=== PATIENT | female | born 1980 | race Caucasian/White ===

== ENCOUNTER 2017-08-26 08:13 | Day surgery (SDC) | payer OTHER ==
[~2017-08-26 08:13] MED LIST: RINGER'S SOLUTION,LACTATED 1,000 ML IV PRN
[2017-08-26 08:37] VITALS: BP 145/69
[2017-08-26 08:40] LABS: Hematocrit 35.9 % (37.0-47.0); Hemoglobin 12.3 gm/dL (12.5-16.0); Mean Cell Volume 88.6 fl (78-100); Mean Corpuscular Hemoglobin 30.4 pg (27-31); Mean Corpuscular Hgb Conc 34.3 g/dl (32-36); Mean Platelet Volume 10.9 fl (6.0-9.5); Neutrophil # 3.5 K/mm3 (1.3-6.0); Platelet Count 131 K/mm3 (150-450); Red Blood Count 4.05 M/mm3 (4.2-5.4); White Blood Count 6.1 K/mm3 (4.0-10.5)
[2017-08-26] MEDS ORDERED: RINGER'S SOLUTION,LACTATED 1,000 ML IV ONE (08:55)
== END 2017-08-26 08:14 | disposition home or self-care (01) ==
LOC: AMB 08:13
PROVIDERS: ATTEND Obstetrics & Gynecology
DX: N92.1 Excessive and frequent menstruation with irregular cycle (principal)

== ENCOUNTER 2017-09-02 07:51 | Day surgery (SDC) | payer OTHER ==
[2017-09-02] MEDS ORDERED: Silver Nitrate Applicator 10 EACH PACKET TP ONE (09:41)
[2017-09-02] MEDS ORDERED: FERRIC SUBSULFATE 8 ML VIAL TP ONE (09:43)
[2017-09-02] MEDS ORDERED: IBUPROFEN 600 MG TABLET PO PRN (09:47)
--- NOTE | 2017-09-02 10:34 | OR ---
Operative Report - Dictated Report Narrative: Operative Report 09/02/2017 Hysteroscopy Dilatation and Curettage Preoperative Diagnosis: Menometrorrhagia Postoperative Diagnosis: Menometrorrhagia Procedure: Hysteroscopy Dilatation and Curettage Surgeon: Marichuy Titus M.D. Anesthesia: Anthony Leon CRNA, IV sedation Findings: Uterine sound 11 cm. Copious amount of endometrial curettings. Fluids: 200 ml EBL: Minimal Drains: None Complications: None Condition: Stable Pathology: Endometrial curettings Procedure: The patient was taken to the operating room with IV fluids running. She was placed in the dorsal lithotomy position after anesthesia was induced. A bivalve speculum was placed in the vagina. The anterior lip of the cervix was grasped with a single-tooth tenaculum. Uterine sound was passed into the endometrial cavity with ease. Uterine sound was 11 cm. The cervix was dilated with Dain dilators. The hysteroscope was introduced into the endometrial cavity. The cavity was distended with normal saline. [place] were visualized bilaterally. There was a copious amount of endometrial tissue. The hysteroscope was removed. The cavity was sharply curetted without difficulty. The hysteroscope was once again introduced into the cavity. The cavity was completely curetted. The hysteroscope was removed. The single-tooth tenaculum was removed. Silver nitrate and Monsel's solution were used for cauterization. Sites were hemostatic. The speculum was removed from the vagina. Sponge counts were correct 2. The patient tolerated the procedure well.
[2017-09-02 11:11] VITALS: BP 154/54
== END 2017-09-02 07:52 | disposition home or self-care (01) ==
LOC: AMB 07:51
PROVIDERS: ATTEND Obstetrics & Gynecology
PROC: 0UJD8ZZ Inspection of Uterus and Cervix, Via Natural or Artificial Opening Endoscopic (ICD-10-PCS; 2017-09-02)
PROC: 0UDB7ZX Extraction of Endometrium, Via Natural or Artificial Opening, Diagnostic (ICD-10-PCS; principal; 2017-09-02 09:00)
DX: N92.1 Excessive and frequent menstruation with irregular cycle (principal); E28.2 Polycystic ovarian syndrome; I10 Essential (primary) hypertension; E11.9 Type 2 diabetes mellitus without complications; E78.5 Hyperlipidemia, unspecified; E66.9 Obesity, unspecified; Z68.43 Body mass index [BMI] 50.0-59.9, adult; Z87.891 Personal history of nicotine dependence

== ENCOUNTER 2019-07-05 13:43 | Observation (INO) ==
--- NOTE | 2019-07-05 14:22 | ERNOTE ---
Dyspnea - Date Date of Service: 07/05/19 - General Presenting Symptoms: shortness of breath Time Seen by Provider: 07/05/19 14:11 Source: patient, RN notes reviewed, old records Exam Limitations: no limitations - Immun/Allergies/Home Medications Immunizations: IMMUNIZATION HX Immunizations Up to Date Yes History of Influenza Vaccine No Hx Pneumococcal Vaccination No Allergies/Adverse Reactions: Allergies iodine Allergy (Intermediate, Verified 07/05/19 13:58) red rash, swelling nickel Adverse Reaction (Mild, Verified 07/05/19 13:58) RASH Home Medications: HOME MEDICATIONS Cholecalciferol (Vitamin D3) [Vitamin D3] 2,000 unit PO DAILY 08/21/17 [Last Taken Unknown] buPROPion HCL [Wellbutrin XL] 150 mg PO DAILY 08/21/17 [Last Taken Unknown] lisinopril 10 mg tablet 10 mg PO HS #30 tab 02/02/19 [Last Taken Unknown] blood sugar diagnostic strips See Dose Instructions .ROUTE .MEDSUPPLY #100 ea 02/05/19 [Last Taken Unknown] blood-glucose meter kit See Dose Instructions .ROUTE .MEDSUPPLY #1 ea 02/05/19 [Last Taken Unknown] calcium citrate-ergocalciferol (vitamin D2) 1,500 mg-200 unit tablet 1 tab PO DAILY #90 tab 02/05/19 [Last Taken Unknown] lancets See Dose Instructions .ROUTE .MEDSUPPLY #100 ea 02/05/19 [Last Taken Unknown] metFORMIN HCL [Metformin HCl ER] 1 tab PO HS 07/05/19 [Last Taken Unknown] - History of Present Illness Narrative: Nataliia is a 38 year old female brought to the ED from her PCP's office for dyspnea. This has been going on for 2 weeks and getting progressively worse. She has also gained approximately 65 pounds in the past 5 months. She denies chest pain, but becomes short of breath with minimal exertion. She also reports edema in her legs and abdomen. Severity: moderate Treatment COMPANY SECRETARY: none Initiating event: Reports: unknown Frequency of episodes: Reports: no prior episodes Modifying Factors - (Improves): Reports: rest Modifying Factors (Worsens): Reports: activity Associated Symptoms-Dyspnea: Reports: ankle/leg swelling, anxiety. Denies: fever/chills, chest pain/discomfort, cough, leg/calf pain Prior Treatment: Denies: recently seen Review of Systems - Review of Systems Constitutional: Absent: recent illness, fever, chills EYE: Present: no symptoms reported ENT: Absent: nose congestion, sore throat Respiratory: Present: shortness of breath. Absent: cough, orthopnea Cardiology: Present: edema. Absent: chest pain, claudication Gastrointestinal/Abdominal: Absent: nausea, vomiting, abdominal pain Genitourinary: Present: decreased urinary output. Absent: dysuria Musculoskeletal: Absent: muscle pain, joint pain Skin: Absent: rash, lesions Neurological: Absent: headache, dizziness/light-headedness Endocrine: Present: no symptoms reported Hematologic/Lymphatic: Absent: easy bruising, easy bleeding Psych: Present: anxiety Medical History (Updated 02/05/19 @ 09:46 by Kanwal Dodson MD) PCOS (polycystic ovarian syndrome) (Chronic) Onset Date: Unknown high testosterone levels CECY (obstructive sleep apnea) (Chronic) Onset Date: Unknown Morbid obesity with BMI of 50.0-59.9, adult (Chronic) Onset Date: Unknown BMI 55.55 (2016) Hypertension (Chronic) Onset Date: ~2015 Hyperlipidemia (Chronic) Onset Date: Unknown Endometrial hyperplasia (Chronic) Onset Date: ~12/12/17 simple Diabetes 1.5, managed as type 2 (Chronic) Onset Date: ~12/2015 H/O gestational DM with last child in 2011 Surgical History: Surgical History (Updated 07/15/18 @ 14:12 by Terese Lema RN) History of tubal ligation (Resolved) Onset Date: ~05/04/12 History of ear surgery (Resolved) Onset Date: Unknown myringotomy tubes age 3 History of hysteroscopy (Resolved) Onset Date: ~09/02/17 04/23/18. Dr. Titus - menometrorrhagia. Dr. Aguirre with IUD placement H/O dilation and curettage (Resolved) Onset Date: ~09/02/17 Dr. Titus - menometrorrhagia Hx of cholecystectomy (Resolved) Onset Date: ~2006 H/O section (Resolved) Onset Date: ~2003 also 2007, 2011. distress at induction, rpt - c section, Rh negative given Rhogam Family History: Family History (Updated 07/15/18 @ 14:13 by Terese Lema RN) Father , 12/2016 Diabetes Mother , age 43 Crohns disease Social History: (Last Reviewed 07/05/19 @ 15:45 by Salome Davis NP) Social History: adopted: No lives independently: Yes household members: significant other Highest education level completed: high school graduate Service: No Tobacco: Smoking Status: Former smoker Alcohol: alcohol intake: never Substance Use: substance use type: does not use Dietary Habits: caffeine: No Physical Exam - Physical Exam General Appearance: Present: alert, mild distress, anxious, obese, crying Head Exam: Present: normal inspection Eye Exam: Normal inspection: bilateral Neck: Present: normal inspection, nontender, supple, full range of motion Respiratory: Present: chest nontender, lungs clear, respiratory distress - mild, accessory muscle use - mildly dyspneic at rest Cardiovascular/Chest: Present: normal peripheral pulses, tachycardia, systolic murmur Gastrointestinal/Abdominal: Present: nontender, distended - obese Extremity Exam: Present: non-tender, normal range of motion, extremity edema - bilateral feet/lower legs. Absent: calf tenderness Neurological Exam: Present: alert, oriented, normal mood/affect, no motor /sensory deficits Skin Exam: Present: normal color, warm/dry Progress - Results and Orders Patient's Lab Results:: I have reviewed the patient's lab results. - Vital Signs Patient's Vital Signs:: I have reviewed the patient's vital signs. Vital Signs: Vital Signs 07/05/19 13:45 07/05/19 14:06 Temperature 37.5 C Pulse Rate 105 H 104 H Respiratory Rate 18 Blood Pressure 169/85 H O2 Sat by Pulse Oximetry 98 - EKG EKG #1 EKG: NSR, nonspecific ST T wave changes EKG read: Reviewed by me - X-Ray X-Ray #1 X-Ray: chest Interpretation: Reviewed by me X-ray Comments: Chest PA Lateral * Hypoinflated lung volumes. Patient has bibasilar opacities with partial obscuration of the medial aspects of the hemidiaphragms. There is increased vascular markings and peripheral linear lung markings at the lung bases bilaterally. No definable pneumothorax. Lateral view demonstrates blunted appearance of the costophrenic angles at the posterior aspect suggestive of small bilateral pleural fluid. Mild enlargement of the cardiac silhouette noted. Mild tortuosity of the thoracic aorta noted, with overlying atherosclerotic vascular calcifications. Overall stable. Trachea is in normal position. Bones show degenerative changes of the spine. IMPRESSION: 1. Hypoventilatory changes, bibasilar opacities suggestive of atelectasis versus multifocal pneumonia. 2. Probably vascular congestion/interstitial edema suggested. Small bilateral pleural fluid noted. 3. Stable mild cardiomegaly. Electronically signed by Johnathan Sagastume M.D.. - Progress/Reassessment Chief Complaint: Dyspnea Progress:: Unchanged Plan - Plan Plan: The patient has an elevated Ddimer at 5.43. Given her dyspnea and tachycardia (100-110), this is highly suspicious for a PE. A CTA chest is not able to be done today. Dr. Dodson was contacted and recommends transfer. I contacted [facility] and the patient was accepted for transfer by Dr. Moore. This was discussed with the patient, she is agreeable to transfer but is extremely anxious and tearful. Ativan ordered. The patient will be transported by [facility] ambulance. Departure Clinical Impression: Elevated d-dimer Dyspnea Qualifiers: Dyspnea type: shortness of breath Qualified Code(s): R06.02 - Shortness of breath; R06.00 - Dyspnea, unspecified; R06.01 - Orthopnea - Departure Disposition: Short Term Hospital Inpatient Condition: Serious Referrals: Kanwal Dodson MD [Primary Care Provider] -
[2019-07-05 14:36] LABS: Hematocrit 38.9 % (37.0-47.0); Hemoglobin 13.3 gm/dL (12.5-16.0); Mean Cell Volume 96.5 fl (78-100); Mean Corpuscular Hgb Conc 34.2 g/dl (32-36); Mean Platelet Volume 12.4 fl (8-12.5); Neutrophil # 3.8 K/mm3 (1.3-6.0); Neutrophil % 59.2 % (42-75.0); Platelet Count 102 K/mm3 (150-450); Red Blood Count 4.03 M/mm3 (4.2-5.4); Red Cell Distribution Width 15.7 % (11.5-14.0); White Blood Count 6.5 K/mm3 (4.0-10.5)
[2019-07-05 14:52] LABS: Troponin I 0.025 ng/mL (0.00-0.10)
[2019-07-05 14:55] LABS: Albumin * 1.9 gm/dl (3.4-5.0); Anion Gap 10.8 mmol/L (6.8-13.8); BUN/Creatinine Ratio 7.7 (9.0-21.6); Bilirubin, Total 6.4 mg/dL (0.0-1.1); Ca. Corrected For Albumin 9.2 mg/dL (8.4-10.2); Calcium * 7.8 mg/dL (7.9-10.9); Carbon Dioxide 24.8 mmol/L (24-32.6); Potassium 3.6 mmol/L (3.4-4.6); TSH * 4.021 uIU/mL (0.358-3.74); Total Protein 5.4 gm/dL (6.2-8.2)
[2019-07-05] MEDS ORDERED: LORazepam 2 MG/ML DISP.SYRIN IV ONE (15:31)
[2019-07-05] MEDS ORDERED: ENOXAPARIN SODIUM SC SCH ×3 (17:30)
[2019-07-05] MEDS ORDERED: ENOXAPARIN SODIUM 60 MG/0.6 ML SYRG SC SCH (17:30)
[2019-07-05] MEDS ORDERED: ENOXAPARIN SODIUM 80 MG/0.8 ML DISP.SYRIN SC SCH (20:00)
[2019-07-05 20:05] LABS: Prothrombin Time (Patient) 18.7 Seconds (9.1-10.7)
[2019-07-05 20:06] LABS: INR 1.94 INR (0.92-1.08)
[2019-07-05] MEDS ORDERED: METOPROLOL TARTRATE 1 MG/ML AMPUL IV ONE (20:07)
--- NOTE | 2019-07-05 20:34 | HP ---
Chief Complaint - Chief Complaint Date of Service: 07/05/19 Time of Service: 20:10 Chief Complaint: I have been gaining weight and short of breath over the past 2 weeks History of Present Illness: 38-year-old interracial female with past medical history of type 2 diabetes, morbid obesity, hyperlipidemia, CECY, PCOS, was sent to the ER from my office early this afternoon when the patient showed up for his scheduled visit and was noted to be short of breath and in mild respiratory distress. Patient reports that over the past 2 weeks she has been gradually gaining weight and has been heavier in her feet which makes it difficult to ambulate without over exerting herself, she also reports worsening shortness of breath with mild exertion and difficulty breathing. She denies having these symptoms before and never been diagnosed with respiratory issues. Patient reports besides the mentioned symptoms she suspects that she has been running a low-grade fever and has had a mild nonproductive cough. She denies contact with sick persons or any changes in her medications. Patient does not have a cardiac or renal history that would explain her symptoms. Medical History (Updated 07/05/19 @ 15:51 by Salome Davis NP) PCOS (polycystic ovarian syndrome) (Chronic) Onset Date: Unknown high testosterone levels CECY (obstructive sleep apnea) (Chronic) Onset Date: Unknown Morbid obesity with BMI of 50.0-59.9, adult (Chronic) Onset Date: Unknown BMI 55.55 (2016) Hypertension (Chronic) Onset Date: ~2015 Hyperlipidemia (Chronic) Onset Date: Unknown Endometrial hyperplasia (Chronic) Onset Date: ~12/12/17 simple Diabetes 1.5, managed as type 2 (Chronic) Onset Date: ~12/2015 H/O gestational DM with last child in 2011 Surgical History: Surgical History (Updated 07/15/18 @ 14:12 by Terese Lema RN) History of tubal ligation (Resolved) Onset Date: ~05/04/12 History of ear surgery (Resolved) Onset Date: Unknown myringotomy tubes age 3 History of hysteroscopy (Resolved) Onset Date: ~09/02/17 04/23/18. Dr. Titus - menometrorrhagia. Dr. Aguirre with IUD placement H/O dilation and curettage (Resolved) Onset Date: ~09/02/17 Dr. Titus - menometrorrhagia Hx of cholecystectomy (Resolved) Onset Date: ~2006 H/O section (Resolved) Onset Date: ~2003 also 2007, 2011. distress at induction, rpt - c section, Rh negative given Rhogam Family History: Family History (Updated 07/15/18 @ 14:13 by Terese Lema RN) Father , 12/2016 Diabetes Mother , age 43 Crohns disease Social History: (Last Reviewed 07/05/19 @ 18:44 by Yu Hallman RN) Social History: adopted: No lives independently: Yes household members: significant other Highest education level completed: high school graduate Service: No Tobacco: Smoking Status: Former smoker Alcohol: alcohol intake: never Substance Use: substance use type: does not use Dietary Habits: caffeine: No Peds Patient Hx - Developmental: No Pertinent Hx Peds Patient Hx - Medical: No Pertinent Hx Peds Patient Hx - Cardiac/Respiratory: No Pertinent Hx Peds Patient Hx - Surgical: No Surgical History Patient History - Cancer: No Hx of Cancer Review Of Systems (GEN) - Review of Systems Generalized/Overall Review: Present: Fever, Weight gain EENTM: Present: No Symptoms Reported Respiratory: Present: Cough, Shortness of Breath Cardiac: Present: Edema Abdominal: Present: No Symptoms Reported Genitourinary: Present: No Symptoms Reported Musculoskeletal: Present: No Symptoms Reported Neurological: Present: No Symptoms Reported Skin: Present: No Symptoms Reported Endocrine: Present: No Symptoms Reported Immunizations: IMMUNIZATION HX Immunizations Up to Date Yes History of Influenza Vaccine No Hx Pneumococcal Vaccination No Allergies/Adverse Reactions: Allergies Allergy/AdvReac Type Severity Reaction Status Date / Time iodine Allergy Intermediate red rash, Verified 07/05/19 13:58 swelling nickel AdvReac Mild RASH Verified 07/05/19 13:58 Home Medications: HOME MEDICATIONS Cholecalciferol (Vitamin D3) [Vitamin D3] 2,000 unit PO DAILY 08/21/17 [Last Taken Unknown] buPROPion HCL [Wellbutrin XL] 150 mg PO DAILY 08/21/17 [Last Taken 07/04/19 11:00] blood sugar diagnostic strips See Dose Instructions .ROUTE .MEDSUPPLY #100 ea 02/05/19 [Last Taken Unknown] blood-glucose meter kit See Dose Instructions .ROUTE .MEDSUPPLY #1 ea 02/05/19 [Last Taken Unknown] calcium citrate-ergocalciferol (vitamin D2) 1,500 mg-200 unit tablet 1 tab PO DAILY #90 tab 02/05/19 [Last Taken 07/04/19 22:00] lancets See Dose Instructions .ROUTE .MEDSUPPLY #100 ea 02/05/19 [Last Taken Unknown] Lisinopril [Prinivil] 20 mg PO HS 07/05/19 [Last Taken 07/04/19 22:00] metFORMIN HCL [Metformin HCl ER] 1 tab PO HS 07/05/19 [Last Taken 07/04/19 22:00] Exam - Exam Vital Signs: Vital Signs - Last Taken Temp 36.9 C 07/05/19 17:21 Pulse 108 H 07/05/19 18:00 Resp 18 07/05/19 18:00 BP 150/67 H 07/05/19 18:00 Pulse Ox 95 07/05/19 18:00 Constitutional: Present: Alert, Oriented x3, Cooperative, Well developed, No distress, Morbidly obese ENT Exam: Present: normal ENT inspection, hearing grossly normal, pharynx normal, TMs normal Eye Exam: bilateral eye: normal inspection, PERRL, EOMI Neck: Present: non-tender, full range of motion, supple, normal inspection, trachea midline Back Exam: Present: normal inspection, no CVA tenderness, no vertebral tenderness Breasts: Present: Exam deferred, Nontender Respiratory: Present: chest non-tender, lungs clear, no accessory muscle use, decreased breath sounds - Decreased breath sounds at the lung bases, other - Mild tachypnea Cardiovascular/Chest: Present: normal peripheral pulses, regular rate, rhythm, no chest tenderness, no gallop, no JVD, no murmur, tachycardia, edema - Generalized edema Peripheral Pulses: carotid (R): 3+, carotid (L): 3+, femoral (R): 3+, femoral (L): 3+, dorsalis-pedis (R): 3+, dorsalis-pedis (L): 3+ Abdomen: Present: Normal bowel sounds, soft, nontender, no rebound tenderness, no hepatospenomegaly, obese /Rectal: Present: Exam deferred Extremity: Present: normal range of motion, non-tender, no calf tenderness, leg pain, pedal edema Skin Exam: Present: normal color - Bilateral 3+ pedal edema, warm/dry, no cyanosis Lymphatic: Present: no adenopathy Neurologic: Present: house painter II-XII nml as tested, normal cerebellar test, no motor/sensory deficits, alert, normal mood/affect, oriented x 3 Appearance: Present: appropriate appearance, appropriate insight, neat, no memory impairment Eye contact: Present: cooperative, good eye contact, normal speech Thoughts: Present: normal thought pattern, no apparent hallucination Diagnostic Studies: Abnormal Lab Results 07/05/19 07/05/19 07/05/19 Range/Units 14:29 14:29 14:29 RBC 4.03 L (4.2-5.4) M/mm3 MCH 33.0 H (27-31) pg RDW 15.7 H (11.5-14.0) % Plt Count 102 L (150-450) K/mm3 Immature Gran % (Auto) 0.50 H (0.001-0.429) % Monocytes % 10.5 H (0.0-9) % Eosinophils % 4.2 H (0.0-3.0) % PT (9.1-10.7) Seconds INR (Anticoag Therapy) (0.92-1.08) INR D-Dimer 5.43 H (0.19-0.49) ug/mL BUN/Creatinine Ratio 7.7 L (9.0-21.6) Calcium 7.8 L (7.9-10.9) mg/dL Total Bilirubin 6.4 H (0.0-1.1) mg/dL AST 70 H (0-48) U/L Alkaline Phosphatase 187 H (50-170) U/L Total Protein 5.4 L (6.2-8.2) gm/dL Albumin 1.9 L (3.4-5.0) gm/dl TSH 4.021 H (0.358-3.74) uIU/mL 07/05/19 Range/Units 14:29 RBC (4.2-5.4) M/mm3 MCH (27-31) pg RDW (11.5-14.0) % Plt Count (150-450) K/mm3 Immature Gran % (Auto) (0.001-0.429) % Monocytes % (0.0-9) % Eosinophils % (0.0-3.0) % PT 18.7 H (9.1-10.7) Seconds INR (Anticoag Therapy) 1.94 H (0.92-1.08) INR D-Dimer (0.19-0.49) ug/mL BUN/Creatinine Ratio (9.0-21.6) Calcium (7.9-10.9) mg/dL Total Bilirubin (0.0-1.1) mg/dL AST (0-48) U/L Alkaline Phosphatase (50-170) U/L Total Protein (6.2-8.2) gm/dL Albumin (3.4-5.0) gm/dl TSH (0.358-3.74) uIU/mL Laboratory Results WBC 6.5 K/mm3 (4.0-10.5) 07/05/19 14:29 RBC 4.03 M/mm3 (4.2-5.4) L 07/05/19 14:29 Hgb 13.3 gm/dL (12.5-16.0) 07/05/19 14:29 Hct 38.9 % (37.0-47.0) 07/05/19 14:29 MCV 96.5 fl (78-100) 07/05/19 14:29 MCH 33.0 pg (27-31) H 07/05/19 14:29 MCHC 34.2 g/dl (32-36) 07/05/19 14:29 RDW 15.7 % (11.5-14.0) H 07/05/19 14:29 Plt Count 102 K/mm3 (150-450) L 07/05/19 14:29 MPV 12.4 fl (8-12.5) 07/05/19 14:29 Immature Gran % (Auto) 0.50 % (0.001-0.429) H 07/05/19 14:29 Immature Gran # (Auto) 0.03 K/mm3 (0.000-0.0310) 07/05/19 14:29 59.2 % (42-75.0) 07/05/19 14:29 24.8 % (20-51) 07/05/19 14:29 10.5 % (0.0-9) H 07/05/19 14:29 4.2 % (0.0-3.0) H 07/05/19 14:29 0.8 % (0.0-1.0) 07/05/19 14:29 Nucleated RBC % 0.0 k/mm3 (0-1) 07/05/19 14:29 3.8 K/mm3 (1.3-6.0) 07/05/19 14:29 1.61 k/mm3 (1.5-3.5) 07/05/19 14:29 0.7 k/mm3 (0.0-1.0) 07/05/19 14:29 0.3 k/mm3 (0.0-0.7) 07/05/19 14:29 Absolute Basophils 0.1 k/mm3 (0.0-0.1) 07/05/19 14:29 PT 18.7 Seconds (9.1-10.7) H 07/05/19 14:29 INR (Anticoag Therapy) 1.94 INR (0.92-1.08) H 07/05/19 14:29 5.43 ug/mL (0.19-0.49) H 07/05/19 14:29 Sodium 137 mmol/L (132-142) 07/05/19 14:29 137 mmol/L (130-142) 07/05/19 14:29 Potassium 3.6 mmol/L (3.4-4.6) 07/05/19 14:29 Chloride 105 mmol/L (97-106) 07/05/19 14:29 Carbon Dioxide 24.8 mmol/L (24-32.6) 07/05/19 14:29 10.8 mmol/L (6.8-13.8) 07/05/19 14:29 BUN 5 mg/dL (3-23) D 07/05/19 14:29 0.65 mg/dL (0.4-1.4) 07/05/19 14:29 Est GFR (Non-Af Amer) 108 mL/min (60-130) 07/05/19 14:29 7.7 (9.0-21.6) L 07/05/19 14:29 91 mg/dL (70-110) 07/05/19 14:29 Calcium 7.8 mg/dL (7.9-10.9) L 07/05/19 14:29 Calcium Adj for Albumin 9.2 mg/dL (8.4-10.2) 07/05/19 14:29 6.4 mg/dL (0.0-1.1) H 07/05/19 14:29 AST 70 U/L (0-48) H 07/05/19 14:29 ALT 38 U/L (19-67) 07/05/19 14: 187 U/L (50-170) H 07/05/19 14:29 0.025 ng/mL (0.00-0.10) 07/05/19 14: B-Natriuretic Peptide 61 pg/mL (5-150) 07/05/19 14: 5.4 gm/dL (6.2-8.2) L 07/05/19 14: 1.9 gm/dl (3.4-5.0) L 07/05/19 14: TSH 4.021 uIU/mL (0.358-3.74) H 07/05/19 14: Free T4 1.24 ng/dL (0.76-1.46) 07/05/19 14: Serum HCG, Qual Negative (NEGATIVE) 07/05/19 14:29 Assessment/Plan - Narrative Narrative: Patient was evaluated and medical chart was reviewed and decision to admit to [facility] for observation was made. ER labs demonstrates elevated d-dimer and given the patient's clinical presentation suspicion is high for pulmonary embolism. However, VQ scan to rule out PE will not be available until tomorrow morning and patient is allergic to iodine contrast so chest CT with contrast is contraindicated. In the meantime we will treat patient with therapeutic levels of Lovenox to anticoagulate her and keep her on pulse ox and campus monitor for monitoring of her heart rate. Patient presents tachycardia as well as hypertension therefore IV metoprolol was ordered. She also presents marked anasarca with edema of her abdomen as well as her lower extremities, given these findings patient will also be treated with multiple doses of IV furosemide to diurese her. Patient was found to have a normal BNP which ruled out CHF and troponin was negative, therefore cardiac etiology is unlikely. Will wait for VQ scan results to rule out pulmonary embolism. - Assessment/Plan (1) Elevated d-dimer Problem: Acute (2) Small pleural effusion Problem: Acute (3) Fluid overload Problem: Acute (4) Morbid obesity due to excess calories Problem: Chronic (5) Dyspnea Problem: Acute Qualifiers: Dyspnea type: shortness of breath Qualified Code(s): R06.02 - Shortness of breath; R06.00 - Dyspnea, unspecified; R06.01 - Orthopnea (6) Suspected pulmonary embolism Problem: Acute
[2019-07-05] MEDS: FUROSEMIDE 10 MG/ML VIAL IV SCH (20:56)
[2019-07-05] MEDS ORDERED: LISINOPRIL 10 MG TABLET PO SCH (21:00)
[2019-07-05] MEDS: FAMOTIDINE 20 MG in DEXTROSE 5 % IN WATER 100 ML IV SCH ×2 (21:36)
[2019-07-06] MEDS ORDERED: ENOXAPARIN SODIUM 100 MG/ML SYRG SC SCH (05:30)
[2019-07-06] MEDS ORDERED: ENOXAPARIN SODIUM 80 MG/0.8 ML DISP.SYRIN SC SCH (05:30)
[2019-07-06] MEDS: FUROSEMIDE 10 MG/ML VIAL IV SCH (08:41)
--- NOTE | 2019-07-06 08:58 | PN ---
Subjective - Date and Time Seen Date: 07/06/19 Time: 08:48 Subjective Narrative: I have less shortness of breath but still have trouble breathing and I am swollen. Objective Objective Narrative: 38-year-old interracial female admitted for suspected pulmonary embolism, dyspnea, and fluid overload was evaluated at bedside and was found to be afebrile and in no acute distress. Patient was administered IV furosemide and responded with adequate diuresis which has lessened her edema and improved her shortness of breath. She was also administered IV metoprolol which has controlled her tachycardia. This morning she reports having less difficulty breathing and less swelling in her body, however the patient still has significant signs of fluid overload. INR ordered during admission demonstrates a prolonged INR and coagulation factors. Patient denies being on any anticoagulants or even aspirin recently therefore the reason for her anticoagulation is not known. She also have a mildly elevated AST and elevated bilirubin but shows no jaundice or other signs of liver failure. It is very possible given the patient's morbid obesity that she has a fatty liver which might explain the elevated AST. This morning she was taken to our radiology department for VQ scan results are pending to either confirm or rule out a pulmonary embolism, in the meantime we will continue administering therapeutic levels of Lovenox for adequate anticoagulation. - Review of Systems Generalized/Overall Review: Reports: Weight gain EENTM: Reports: No Symptoms Reported Respiratory: Reports: Shortness of Breath Cardiac: Reports: Edema Abdominal: Reports: No Symptoms Reported Genitourinary Symptoms: Reports: No Symptoms Reported Musculoskeletal Complaints: Reports: No Symptoms Reported Neurological: Reports: No Symptoms Reported Skin: Reports: No Symptoms Reported Endocrine: Reports: No Symptoms Reported - Vitals Vitals: Last Vital Signs Temp 36.7 C 07/06/19 06:24 Pulse 102 H 07/06/19 08:41 Resp 32 H 07/06/19 06:24 BP 117/56 07/06/19 08:41 Pulse Ox 93 07/06/19 06:24 - Abnormal Lab Findings Abnormal Lab Findings: Abnormal Lab Results 07/05/19 07/05/19 07/05/19 Range/Units 14:29 14:29 14:29 RBC 4.03 L (4.2-5.4) M/mm3 MCH 33.0 H (27-31) pg RDW 15.7 H (11.5-14.0) % Plt Count 102 L (150-450) K/mm3 Immature Gran % (Auto) 0.50 H (0.001-0.429) % Monocytes % 10.5 H (0.0-9) % Eosinophils % 4.2 H (0.0-3.0) % PT (9.1-10.7) Seconds INR (Anticoag Therapy) (0.92-1.08) INR D-Dimer 5.43 H (0.19-0.49) ug/mL BUN/Creatinine Ratio 7.7 L (9.0-21.6) Calcium 7.8 L (7.9-10.9) mg/dL Total Bilirubin 6.4 H (0.0-1.1) mg/dL AST 70 H (0-48) U/L Alkaline Phosphatase 187 H (50-170) U/L Total Protein 5.4 L (6.2-8.2) gm/dL Albumin 1.9 L (3.4-5.0) gm/dl TSH 4.021 H (0.358-3.74) uIU/mL 07/05/19 Range/Units 14:29 RBC (4.2-5.4) M/mm3 MCH (27-31) pg RDW (11.5-14.0) % Plt Count (150-450) K/mm3 Immature Gran % (Auto) (0.001-0.429) % Monocytes % (0.0-9) % Eosinophils % (0.0-3.0) % PT 18.7 H (9.1-10.7) Seconds INR (Anticoag Therapy) 1.94 H (0.92-1.08) INR D-Dimer (0.19-0.49) ug/mL BUN/Creatinine Ratio (9.0-21.6) Calcium (7.9-10.9) mg/dL Total Bilirubin (0.0-1.1) mg/dL AST (0-48) U/L Alkaline Phosphatase (50-170) U/L Total Protein (6.2-8.2) gm/dL Albumin (3.4-5.0) gm/dl TSH (0.358-3.74) uIU/mL - Exam Constitutional: Present: Alert, Oriented x3, Cooperative, Well developed, No distress, Morbidly obese ENT Exam: Present: normal ENT inspection, hearing grossly normal, pharynx normal, TMs normal Neck: Present: non-tender, full range of motion, supple, normal inspection, trachea midline Breasts: Present: Exam deferred Respiratory: Present: wheezing - Mild wheezing heard at lung bases Cardiovascular/Chest: Present: normal peripheral pulses, regular rate, rhythm, no chest tenderness, no gallop, no JVD, no murmur, edema Abdomen: Present: Normal bowel sounds, soft, nontender, no rebound tenderness, obese /Rectal: Present: Exam deferred Extremity: Present: normal range of motion, non-tender, normal inspection, no calf tenderness, pedal edema - 2+ pedal edema Skin Exam: Present: normal color, warm/dry, no cyanosis Lymphatic: Present: no adenopathy Neurologic: Present: founder ceo & president II-XII nml as tested, normal cerebellar test, no motor/sensory deficits, alert, normal mood/affect, oriented x 3 Appearance: Present: appropriate appearance, appropriate insight, neat, no memory impairment Eye contact: Present: cooperative, good eye contact, normal speech Thoughts: Present: normal thought pattern, no apparent hallucination Assessment/Plan Plan Narrative: We will await VQ scan results for suspected PE and continue to anticoagulate the patient with Lovenox in the meantime. Patient will also be administered additional doses of IV furosemide to reduce diuresis in order to manage her edema. Her routine meds have been read by consult to be administered as taken at home. This morning her blood pressure and pulse are adequately controlled after being administered beta-blockers, we will keep her on telemetry to continue monitoring vitals and rhythm. - Problems/Diagnosis (1) Elevated d-dimer Problem: Acute (2) Small pleural effusion Problem: Acute (3) Fluid overload Problem: Acute (4) Morbid obesity due to excess calories Problem: Chronic (5) Dyspnea Problem: Acute Qualifiers: Dyspnea type: shortness of breath Qualified Code(s): R06.02 - Shortness of breath; R06.00 - Dyspnea, unspecified; R06.01 - Orthopnea (6) Suspected pulmonary embolism Problem: Acute (7) Tachycardia Problem: Acute (8) Elevated INR Problem: Acute
[2019-07-06] MEDS ORDERED: CALCIUM CARBONATE/VITAMIN D3 1 TAB TABLET PO SCH (09:00)
[2019-07-06] MEDS ORDERED: buPROPion HCL 150 MG TAB.SR.24H PO SCH (09:00)
[2019-07-06] MEDS ORDERED: METOPROLOL SUCCINATE 50 MG TABLET.SA PO SCH (09:00)
[2019-07-06] MEDS ORDERED: CHOLECALCIFEROL 1,000 UNIT CAPSULE PO SCH (09:00)
[2019-07-06] MEDS: FAMOTIDINE 20 MG in DEXTROSE 5 % IN WATER 100 ML IV SCH ×2 (10:20)
[2019-07-06 11:47] LABS: Hematocrit 37.8 % (37.0-47.0); Mean Cell Volume 96.2 fl (78-100); Mean Corpuscular Hemoglobin 33.1 pg (27-31); Mean Corpuscular Hgb Conc 34.4 g/dl (32-36); Mean Platelet Volume 12.4 fl (8-12.5); Neutrophil # 3.4 K/mm3 (1.3-6.0); Neutrophil % 52.1 % (42-75.0); Platelet Count 110 K/mm3 (150-450); Red Blood Count 3.93 M/mm3 (4.2-5.4); Red Cell Distribution Width 15.8 % (11.5-14.0); White Blood Count 6.6 K/mm3 (4.0-10.5)
[2019-07-06 11:55] LABS: Prothrombin Time (Patient) 19.7 Seconds (9.1-10.7)
[2019-07-06 12:02] LABS: Total Cells Counted 100
[2019-07-06 12:13] LABS: INR 2.05 INR (0.92-1.08)
[2019-07-06 13:15] LABS: Atypical (Reactive) Lymph 11 % (0-2); Eosinophil 2 % (0-3); Lymphocyte 19 % (20-51); Monocyte 11 % (0-9); Neutrophil 57 % (42-75); Neutrophil # 3.8 K/mm3 (1.3-6.0)
[2019-07-06 13:16] LABS: Anisocytosis 1+; Platelet Estimate Normal (NORMAL)
[2019-07-06 13:17] LABS: Ovalocytes 1+
--- NOTE | 2019-07-06 14:17 | PATHPSR ---
PHYSICIAN: Kanwal Dodson MD LAB#: [id number] SPECIMEN DATE: 07/06/2019 CLINICAL INFORMATION: The patient is a 38-year-old woman with past history of type II diabetes, morbid obesity, hyperlipidemia, CECY, PCOS was admitted from the ER when the patient presented shortness of breath and mild respiratory distress. Patient has INR 2.05, low fibrinogen 93 mg/dL, high d-dimer is 543 ug/mL and platelets are 102,000/mm3. Peripheral review by pathologist is ordered for this reason. CBC: WBC 6.6 K/mm3, hemoglobin 13.0 gm/dl, hematocrit 37.8 %, MCV is 96.2 fl, MCH is 33.1 pg, MCHC is 34.4 g/dl, Platelet count 110,000. Manual differential: Neutrophils 57 %, bands 0 %, lymphocytes 19 %, monocytes 11 %, eosinophils 2 %, basophils 0 %, atypical reactive lymphocytes 11 %. RED BLOOD CELLS: 1+ anisocytosis , 1+ ovalocytes, 1+ schistocytes PLATELETS: Thrombocytopenia WHITE BLOOD CELLS: Monocytosis with increase in reactive lymphocytes DIAGNOSIS: PERIPHERAL BLOOD SMEAR, REVIEW BY PATHOLOGIST: -INCREASE IN REACTIVE ATYPICAL LYMPHOCYTES AND MONOCYTES -THROMBOCYTOPENIA COMMENT: The coagulation values are suggestive of early disseminated intravascular coagulation. The WBC features suggest a viral etiology. No immature elements or malignancy is identified on our examination. Dr. Dodson is called with our interpretation on 07/06/2019.
--- NOTE | 2019-07-06 16:25 | DS ---
Transfer Discharge Summary - Diagnosis(s)/Problems (1) Elevated d-dimer Problem: Acute (2) Small pleural effusion Problem: Acute (3) Fluid overload Problem: Acute (4) Morbid obesity due to excess calories Problem: Chronic (5) Dyspnea Problem: Acute (6) Suspected pulmonary embolism Problem: Acute (7) Tachycardia Problem: Acute (8) Elevated INR Problem: Acute (9) DIC (disseminated intravascular coagulation) Problem: Acute (10) Cirrhosis of liver Problem: Suspected (11) Abnormal abdominal ultrasound Problem: Acute (12) Hematologic abnormality Problem: Acute (13) Ascites Problem: Acute (14) Thrombocytopenia Problem: Acute - Course Description of Stay: 38-year-old interracial female admitted for suspected pulmonary embolism, dyspnea, tachycardia, and fluid overload after patient developed shortness of breath and mild respiratory distress while at her PCPs office was evaluated at bedside and was found to be afebrile and in no acute distress. After brief evaluation of patient she was sent to our ER where labs demonstrated an elevated d-dimer raising the suspicion of a pulmonary embolism. Patient was placed on therapeutic levels of anticoagulation and VQ scan was ordered for confirmation or ruling out of PE. On physical exam patient was found to have anasarca with significant ascites. She also reported that over the past 2 weeks that she she was gaining weight which was strange since she was dieting and hardly eating anything, she also said that her shortness of breath gradually worsened to the point where she can hardly walk. In the presentation of her symptoms and laboratory results a complete hematologic work-up revealed a high probability of DIC likely secondary to a viral infection such as mono given elevated atypical lymphocytes on peripheral blood smear. Currently patient shows no signs or symptoms of active bleeding however we are monitoring her closely. Initial suspicion of pulmonary embolism has decreased given the negative VQ scan and the improvement of patient's oxygen saturation. We have however treated the patient with multiple doses of IV diuretics leading to significant diuresis which has improved her edema and her shortness of breath. However the patient still tachypneic and still has significant swelling worse around her abdomen. Abdominal ultrasound revealed possible cirrhosis versus liver masses, radiologist reports difficulty interpreting the imaging due to the patient's large body habitus and morbid obesity. Given her clinical presentation and the probability of DIC, decision to transfer patient to a tertiary care unit with hematology service was made. [facility] was contacted and the case was presented to the hospitalist concrete mixer operator helper who has accepted the patient. Patient is currently clinically stable and agrees to being transferred for appropriate care of her condition. Procedures Performed: none - Results and Findings Results and Findings: Laboratory Results - last 24 hr 07/05/19 07/05/19 07/06/19 14:29 14:29 11:30 WBC RBC Hgb Hct MCV MCH MCHC RDW Plt Count MPV Immature Gran % (Auto) Immature Gran # (Auto) Neutrophils % Neutrophils % (Manual) Lymphocytes % Lymphocytes % (Manual) Monocytes % Monocytes % (Manual) Eosinophils % Eosinophils % (Manual) Basophils % Nucleated RBC % Neutrophils # Neutrophils # (Manual) Lymphocytes # Lymphocytes # (Manual) Monocytes # Monocytes # (Manual) Eosinophils # Eosinophils # (Manual) Absolute Basophils Atypic/Reactive Lymphs Platelet Estimate Anisocytosis Ovalocytes Peripheral Blood Smear ESR Absolute Retic Percent Retic Immature Retic Fraction Retic Hgb Content PT 18.7 H 19.7 H INR (Anticoag Therapy) 1.94 H 2.05 H Fibrinogen GGT 34 Lactate Dehydrogenase C-Reactive Prot, Quant Monoscreen Direct Antiglob Test 07/06/19 07/06/19 07/06/19 11:30 11:30 11:30 WBC 6.6 RBC 3.93 L Hgb 13.0 Hct 37.8 MCV 96.2 MCH 33.1 H MCHC 34.4 RDW 15.8 H Plt Count 110 L MPV 12.4 Immature Gran % (Auto) 0.30 Immature Gran # (Auto) 0.02 Neutrophils % 52.1 Neutrophils % (Manual) 57 Lymphocytes % 29.8 Lymphocytes % (Manual) 19 L Monocytes % 12.0 H Monocytes % (Manual) 11 H Eosinophils % 4.7 H Eosinophils % (Manual) 2 Basophils % 1.1 H Nucleated RBC % 0.0 Neutrophils # 3.4 Neutrophils # (Manual) 3.8 Lymphocytes # 1.97 Lymphocytes # (Manual) 1.3 L Monocytes # 0.8 Monocytes # (Manual) 0.7 Eosinophils # 0.3 Eosinophils # (Manual) 0.1 Absolute Basophils 0.1 Atypic/Reactive Lymphs 11 H Platelet Estimate Normal Anisocytosis 1+ Ovalocytes 1+ Peripheral Blood Smear ESR 9 Absolute Retic Percent Retic Immature Retic Fraction Retic Hgb Content PT INR (Anticoag Therapy) Fibrinogen 93 L GGT Lactate Dehydrogenase C-Reactive Prot, Quant Monoscreen Direct Antiglob Test 07/06/19 07/06/19 07/06/19 11:30 11:30 11:30 WBC RBC Hgb Hct MCV MCH MCHC RDW Plt Count MPV Immature Gran % (Auto) Immature Gran # (Auto) Neutrophils % Neutrophils % (Manual) Lymphocytes % Lymphocytes % (Manual) Monocytes % Monocytes % (Manual) Eosinophils % Eosinophils % (Manual) Basophils % Nucleated RBC % Neutrophils # Neutrophils # (Manual) Lymphocytes # Lymphocytes # (Manual) Monocytes # Monocytes # (Manual) Eosinophils # Eosinophils # (Manual) Absolute Basophils Atypic/Reactive Lymphs Platelet Estimate Anisocytosis Ovalocytes Peripheral Blood Smear Smear sent to path. ESR Absolute Retic 0.1245 Percent Retic 3.2 H Immature Retic Fraction 21.0 H Retic Hgb Content 39.0 H PT INR (Anticoag Therapy) Fibrinogen GGT Lactate Dehydrogenase C-Reactive Prot, Quant 2.9 H Monoscreen Direct Antiglob Test 07/06/19 07/06/19 07/06/19 11:30 11:30 11:30 WBC RBC Hgb Hct MCV MCH MCHC RDW Plt Count MPV Immature Gran % (Auto) Immature Gran # (Auto) Neutrophils % Neutrophils % (Manual) Lymphocytes % Lymphocytes % (Manual) Monocytes % Monocytes % (Manual) Eosinophils % Eosinophils % (Manual) Basophils % Nucleated RBC % Neutrophils # Neutrophils # (Manual) Lymphocytes # Lymphocytes # (Manual) Monocytes # Monocytes # (Manual) Eosinophils # Eosinophils # (Manual) Absolute Basophils Atypic/Reactive Lymphs Platelet Estimate Anisocytosis Ovalocytes Peripheral Blood Smear ESR Absolute Retic Percent Retic Immature Retic Fraction Retic Hgb Content PT INR (Anticoag Therapy) Fibrinogen GGT Lactate Dehydrogenase 329 H C-Reactive Prot, Quant Monoscreen Negative Direct Antiglob Test Positive H - Medications Medications: Active Medications Bupropion HCl (Wellbutrin Xl) 150 mg PO DAILY [facility] Stop: 08/05/19 09:01 Last Admin: 07/06/19 08:47 Dose: 150 mg Documented by: Calcium/Vitamin D (Calcarb 600 With Vitamin D) 1 tab PO DAILY [facility] Stop: 08/05/19 09:01 Last Admin: 07/06/19 08:47 Dose: 1 tab Documented by: Cholecalciferol (Vitamin D) 2,000 unit PO DAILY [facility] Stop: 08/05/19 09:01 Last Admin: 07/06/19 08:47 Dose: 2,000 unit Documented by: Furosemide (Lasix) 60 mg IV Q12H [facility] Stop: 07/06/19 20:01 Last Admin: 07/06/19 08:41 Dose: 60 mg Documented by: Famotidine 20 mg/ Dextrose/ (Water) 102 mls @ 400 mls/hr IV Q12H [facility] Stop: 08/04/19 20:01 Last Admin: 07/06/19 10:20 Dose: 400 mls/hr Documented by: Metformin HCl (Glucophage Xr) 500 mg PO [facility] Stop: 08/04/19 21:01 Last Admin: 07/05/19 21:12 Dose: 500 mg Documented by: Metoprolol Succinate (Toprol Xl) 50 mg PO DAILY [facility] Stop: 08/05/19 09:01 Last Admin: 07/06/19 08:47 Dose: 50 mg Documented by: Discontinued Medications Enoxaparin Sodium 100 mg/Enoxaparin Sodium 40 mg/Enoxaparin Sodium 30 mg 170 mg SC Q12H [facility] Stop: 08/04/19 17:31 Last Admin: 07/05/19 17:33 Dose: 170 mg Documented by: Enoxaparin Sodium (Lovenox) 160 mg SC Q12H [facility] Stop: 08/04/19 20:01 Last Admin: 07/06/19 06:13 Dose: Not Given Documented by: Enoxaparin Sodium (Lovenox) 160 mg SC Q12H [facility] Stop: 08/05/19 05:31 Last Admin: 07/06/19 05:32 Dose: 160 mg Documented by: Lisinopril (Zestril) 20 mg PO [facility] Stop: 08/04/19 21:01 Last Admin: 07/05/19 21:44 Dose: 20 mg Documented by: Lorazepam (Ativan) 1 mg IV ONCE ONE Stop: 07/05/19 15:32 Last Admin: 07/05/19 16:06 Dose: 1 mg Documented by: Metoprolol Tartrate (Lopressor) 5 mg IV ONCE ONE Stop: 07/05/19 20:08 Last Admin: 07/05/19 20:29 Dose: 5 mg Documented by: - Disposition Disposition: Short Term Hospital Inpatient Condition: Stable Discharge Date: 07/06/19 Discharge Time: 16:23
[2019-07-06] MEDS ORDERED: ENOXAPARIN SODIUM SC SCH ×2 (17:30)
[2019-07-06 18:35] VITALS: BP 145/50
[2019-07-06] MEDS ORDERED: LISINOPRIL 20 MG TABLET PO SCH (21:00)
[2019-07-08 16:21] LABS: Haptoglobin <8 mg/dL (43-212)
== END 2019-07-06 17:55 | disposition short-term general hospital (02) ==
LOC: MS 13:43 → ER 13:43 → MS 18:00
PROVIDERS: ADMIT Family Medicine; ATTEND Family Medicine
CPT/HCPCS: 36415; 36430; 71020; 71046; 76700; 78582; 80050; 80053; 82977; 83010; 83519; 83615; 83880; 84439; 84484; 84703; 85025; 85045; 85060; 85379; 85384; 85610; 85652; 86140; 86308; 86880; 93005; 94762; 96365; 96366; 96372; 96375; 99285; A9539; A9540; A9567; G0378